=== PATIENT | female | born 1970 | race Caucasian/White ===

== ENCOUNTER 2019-09-06 09:12 | Emergency (ER) | payer OTHER ==
[2019-09-06] MEDS ORDERED: Sodium Chloride 0.9% 10 ML Syringe FLUSH PRN (09:31)
--- NOTE | 2019-09-06 09:33 | EDM.PDOC ---
<Shant Lux - Last Filed: 09/06/19 10:39> ED HPI GENERAL MEDICAL PROBLEM - General Chief Complaint: Cardiovascular Problem Stated Complaint: CHEST PAIN Time Seen by Provider: 09/06/19 09:27 Source of Information: Reports: Patient History Limitations: Reports: No Limitations - History of Present Illness INITIAL COMMENTS - FREE TEXT/NARRATIVE: 49 year old female presents to the ED with complaints of palpitations that she says she has been having for the past three months. She states that she has made an appt with a black ash burner operator next thursday, but came to the the ED today because she had palpitations last evening that would not subside. She said that they started last evening while she was watching television and they did not go away so she thought that she would go to bed and they still did not resolve. She attributes shortness of breath with the palpitations, but denies chest pain or pressure or syncope. Denies caffeine use, smoking, and only minimal alcohol use. Exercises 3-4 days a week. - Related Data Allergies Allergy/AdvReac Type Severity Reaction Status Date / Time Sulfa (Sulfonamide Allergy Rash Verified 09/06/19 09:21 Antibiotics) Home Meds: Home Meds . [No Known Home Meds] 09/06/19 [History] ED ROS GENERAL - Review of Systems Review Of Systems: See Below Constitutional: Reports: No Symptoms HEENT: Reports: No Symptoms Respiratory: Reports: Shortness of Breath. Denies: Wheezing, Cough, Sputum Cardiovascular: Reports: Palpitations. Denies: Chest Pain, Dyspnea on Exertion , Lightheadedness, Orthopnea, Syncope Endocrine: Reports: No Symptoms GI/Abdominal: Reports: No Symptoms : Reports: No Symptoms Musculoskeletal: Reports: No Symptoms Skin: Reports: No Symptoms Neurological: Reports: No Symptoms Psychiatric: Reports: No Symptoms Hematologic/Lymphatic: Reports: No Symptoms Immunologic: Reports: No Symptoms ED EXAM, GENERAL - Physical Exam Exam: See Below Exam Limited By: No Limitations General Appearance: Alert, WD/WN, No Apparent Distress Eye Exam: Bilateral Eye: PERRL Ears: Normal External Exam, Hearing Grossly Normal Nose: Normal Inspection, Normal Mucosa, No Blood Throat/Mouth: Normal Inspection, Normal Lips, Normal Voice, No Airway Compromise Head: Atraumatic, Normocephalic Neck: Normal Inspection, Supple, Non-Tender. No: Lymphadenopathy (L), Lymphadenopathy (R), Thyromegaly Respiratory/Chest: No Respiratory Distress, Lungs Clear, Normal Breath Sounds, No Accessory Muscle Use, Chest Non-Tender, Other (pain to left chest with deep inspiration) Cardiovascular: Normal Peripheral Pulses, Regular Rate, Rhythm, No Edema, No Murmur GI/Abdominal: Normal Bowel Sounds, Soft, Non-Tender, No Distention (Female) Exam: Deferred Rectal (Female) Exam: Deferred Back Exam: Normal Inspection, Full Range of Motion Extremities: Normal Inspection, No Pedal Edema, Normal Capillary Refill Neurological: Alert, Oriented, Normal Cognition, No Motor/Sensory Deficits Psychiatric: Normal Affect, Normal Mood Skin Exam: Warm, Dry, Intact, Normal Color, No Rash Lymphatic: No Adenopathy EKG INTERPRETATION EKG Date: 09/06/19 Time: 09:33 Rhythm: NSR Rate (Beats/Min): 63 Edwards: Normal P-Wave: Present QRS: Normal ST-T: Normal QT: Normal WI/PQ Interval: short P-R interval Comparison: NA - No Prior EKG Course - Vital Signs Last Recorded V/S: Last Vital Signs Temp 36.9 C 09/06/19 09:16 Pulse 69 09/06/19 09:16 Resp 16 09/06/19 09:16 BP 152/109 H 09/06/19 09:16 Pulse Ox 99 09/06/19 09:16 - Orders/Labs/Meds Orders: Active Orders 24 hr Category Date Time Status EKG 12 Lead [EKG Documentation Completion] [RC] STAT Care 09/06/19 09:31 Active Holter Monitor 48 Hours [RC] .PRN Care 09/06/19 10:40 Active Peripheral IV Care [RC] . DIRECTED Care 09/06/19 09:32 Active Sodium Chloride 0.9% [Saline Flush] Med 09/06/19 09:31 Active 10 ml FLUSH ASDIRECTED PRN Peripheral IV Insertion Adult [OM.PC] Routine Oth 09/06/19 09:31 Ordered Medication Orders Sodium Chloride (Saline Flush) 10 ml FLUSH ASDIRECTED PRN PRN Reason: Keep Vein Open Last Admin: 09/06/19 10:01 Dose: 10 ml Labs: Laboratory Tests 09/06/19 09/06/19 09/06/19 Range/Units 09:45 09:45 09:45 WBC 7.05 (3.98-10.04) K/mm3 RBC 4.82 (3.98-5.22) M/mm3 Hgb 13.9 (11.2-15.7) gm/dl Hct 42.7 (34.1-44.9) % MCV 88.6 (79.4-94.8) fl MCH 28.8 (25.6-32.2) pg MCHC 32.6 (32.2-35.5) g/dl RDW Std Deviation 43.8 (36.4-46.3) fL Plt Count 306 (182-369) K/mm3 MPV 10.0 (9.4-12.3) fl Neut % (Auto) 68.2 (34.0-71.1) % Lymph % (Auto) 22.6 (19.3-51.7) % [place] % (Auto) 8.2 (4.7-12.5) % Eos % (Auto) 0.4 L (0.7-5.8) Baso % (Auto) 0.6 (0.1-1.2) % Neut # (Auto) 4.81 (1.56-6.13) K/mm3 Lymph # (Auto) 1.59 (1.18-3.74) K/mm3 [place] # (Auto) 0.58 H (0.24-0.36) K/mm3 Eos # (Auto) 0.03 L (0.04-0.36) K/mm3 Baso # (Auto) 0.04 (0.01-0.08) K/mm3 Sodium 140 (136-145) mEq/L Potassium 3.9 (3.5-5.1) mEq/L Chloride 106 (98-107) mEq/L Carbon Dioxide 25 (21-32) mEq/L Anion Gap 12.9 (5-15) BUN 17 (7-18) mg/dL Creatinine 0.8 (0.55-1.02) mg/dL Est Cr Clr Drug Dosing 68.02 mL/min Estimated GFR (MDRD) > 60 (>60) mL/min BUN/Creatinine Ratio 21.3 H (14-18) Glucose 98 (74-106) mg/dL Calcium 9.4 (8.5-10.1) mg/dL Magnesium 2.0 (1.8-2.4) mg/dl Total Bilirubin 0.4 (0.2-1.0) mg/dL AST 14 L (15-37) U/L ALT 27 (14-59) U/L Alkaline Phosphatase 40 L (46-116) U/L Troponin I < 0.017 (0.00-0.056) ng/mL NT-Pro-B Natriuret Pep 36 (0-125) pg/mL Total Protein 8.2 (6.4-8.2) g/dl Albumin 3.9 (3.4-5.0) g/dl Globulin 4.3 gm/dL Albumin/Globulin Ratio 0.9 L (1-2) TSH 3rd Generation 2.237 (0.358-3.74) uIU/mL Meds: Medications Generic Name Dose Route Start Last Admin Trade Name Freq PRN Reason Stop Dose Admin Sodium Chloride 10 ml 09/06/19 09:31 09/06/19 10:01 Saline Flush FLUSH 10 ml ASDIRECTED PRN Administration Keep Vein Open - Re-Assessments/Exams Free Text/Narrative Re-Assessment/Exam: 09/06/19 0935 I have ordered a chest xray, CBC, CMP, TSH and BNP, and an EKG on this patient. 09/06/19 10:41 Radiologist reviewed chest xray and reports nothing acute seen on chest xray. Lab work is remarkable for AST 14, Alk Phos 40. No other pertinent lab values noted. I have ordered a 48 hour holter monitor on this patient. Departure - Departure Disposition: Home, Self-Care 01 Clinical Impression: Intermittent palpitations Referrals: PCP,None [Primary Care Provider] - Forms: ED Department Discharge Additional Instructions: Evaluation in the emergency room in regards to recurrence of palpitations or rapid irregular heartbeats off and on for the last 2-3 months. Was much worse last night and lasted longer than it has in the past. In the ER only occasional premature atrial contraction was appreciated with no runs of arrhythmias. All of the lab tests and including chest x-ray and ECG today were within normal limits. It is suggested that you have a continuous ECG monitor, Holter monitor for the next 48 hours. The results of this test will be sent to Dr. Becker whom I suggest you follow up with. Continue with your cardiology consultation next Thursday as planned. At this time no medications will be offered. Patients are quite severe and lasting longer than 20 minutes then please return to the ED so that we can track which on the monitor regularly and identify where they may be coming from. <Edilberto Peace - Last Filed: 09/06/19 11:47> ED HPI GENERAL MEDICAL PROBLEM - General Source of Information: Reports: Patient History Limitations: Reports: No Limitations Course - Orders/Labs/Meds Orders: Active Orders 24 hr Category Date Time Status EKG 12 Lead [EKG Documentation Completion] [RC] STAT Care 09/06/19 09:31 Active Holter Monitor 48 Hours [RC] .PRN Care 09/06/19 10:40 Active Peripheral IV Care [RC] . DIRECTED Care 09/06/19 09:32 Active Sodium Chloride 0.9% [Saline Flush] Med 09/06/19 09:31 Active 10 ml FLUSH ASDIRECTED PRN Peripheral IV Insertion Adult [OM.PC] Routine Oth 09/06/19 09:31 Ordered Medication Orders Sodium Chloride (Saline Flush) 10 ml FLUSH ASDIRECTED PRN PRN Reason: Keep Vein Open Last Admin: 09/06/19 10:01 Dose: 10 ml Labs: Laboratory Tests 09/06/19 09/06/19 09/06/19 Range/Units 09:45 09:45 09:45 WBC 7.05 (3.98-10.04) K/mm3 RBC 4.82 (3.98-5.22) M/mm3 Hgb 13.9 (11.2-15.7) gm/dl Hct 42.7 (34.1-44.9) % MCV 88.6 (79.4-94.8) fl MCH 28.8 (25.6-32.2) pg MCHC 32.6 (32.2-35.5) g/dl RDW Std Deviation 43.8 (36.4-46.3) fL Plt Count 306 (182-369) K/mm3 MPV 10.0 (9.4-12.3) fl Neut % (Auto) 68.2 (34.0-71.1) % Lymph % (Auto) 22.6 (19.3-51.7) % [place] % (Auto) 8.2 (4.7-12.5) % Eos % (Auto) 0.4 L (0.7-5.8) Baso % (Auto) 0.6 (0.1-1.2) % Neut # (Auto) 4.81 (1.56-6.13) K/mm3 Lymph # (Auto) 1.59 (1.18-3.74) K/mm3 [place] # (Auto) 0.58 H (0.24-0.36) K/mm3 Eos # (Auto) 0.03 L (0.04-0.36) K/mm3 Baso # (Auto) 0.04 (0.01-0.08) K/mm3 Sodium 140 (136-145) mEq/L Potassium 3.9 (3.5-5.1) mEq/L Chloride 106 (98-107) mEq/L Carbon Dioxide 25 (21-32) mEq/L Anion Gap 12.9 (5-15) BUN 17 (7-18) mg/dL Creatinine 0.8 (0.55-1.02) mg/dL Est Cr Clr Drug Dosing 68.02 mL/min Estimated GFR (MDRD) > 60 (>60) mL/min BUN/Creatinine Ratio 21.3 H (14-18) Glucose 98 (74-106) mg/dL Calcium 9.4 (8.5-10.1) mg/dL Magnesium 2.0 (1.8-2.4) mg/dl Total Bilirubin 0.4 (0.2-1.0) mg/dL AST 14 L (15-37) U/L ALT 27 (14-59) U/L Alkaline Phosphatase 40 L (46-116) U/L Troponin I < 0.017 (0.00-0.056) ng/mL NT-Pro-B Natriuret Pep 36 (0-125) pg/mL Total Protein 8.2 (6.4-8.2) g/dl Albumin 3.9 (3.4-5.0) g/dl Globulin 4.3 gm/dL Albumin/Globulin Ratio 0.9 L (1-2) TSH 3rd Generation 2.237 (0.358-3.74) uIU/mL Meds: Medications Generic Name Dose Route Start Last Admin Trade Name Freq PRN Reason Stop Dose Admin Sodium Chloride 10 ml 09/06/19 09:31 09/06/19 10:01 Saline Flush FLUSH 10 ml ASDIRECTED PRN Administration Keep Vein Open - Radiology Interpretation Free Text/Narrative:: 49-year-old female presents to the ED primarily with recurrence of palpitations. States intermittent palpitations where she is aware of her heart racing and skipping in her chest off and on for the last 2-3 months. Last night seemed to be the worst. She states this started while she was seated on the couch watching television and persisted even when she went to bed. Perhaps associated mild shortness of breath or difficulty getting a full deep breath. No dizziness or lightheadedness or weakness in her legs with standing. She was not able to check her pulse to establish her heart rate. She takes no medications. Takes no cardiac stimulants. Rarely drinks alcohol. Does not smoke. No recent decongestant use or use of energy drinks. No known thyroid disease. Monitor shows sinus rhythm with occasional PACs. I agree with nurse practitioner student Lainey Lux assessment and treatment plan. Patient will have routine labs and electrolytes carried out including serum magnesium and BNP and one view chest x-ray. He of course will be done Departure - Departure Time of Disposition: 11:44 Reason for Transfer *Q: Other Condition: Fair
--- NOTE | 2019-09-06 10:30 | CR ---
Chest: Two views of the chest were obtained. Comparison: No prior chest x-ray. Heart size and mediastinum are normal. Lungs are clear. Bony structures appear within normal limits. Impression: 1. Nothing acute is seen on two-view chest x-ray. Diagnostic code #1
== END 2019-09-06 12:08 | disposition home or self-care (01) ==
LOC: JD.ED 09:12
DX: R00.2 Palpitations (principal); Z88.2 Allergy status to sulfonamides
CPT/HCPCS: 36415; 71046; 71046-26; 80053; 83735; 83880; 84443; 84484; 85025; 93005; 93010; 93225; 93226; 99284; 99285-25